=== PATIENT | male | born 1995 | race Caucasian/White ===

== ENCOUNTER → 2017-04-18 | Outpatient (REF) ==
[~2017-04-18] MED LIST: CLARITIN 1010 MG/TAB PO; FLONASEALLERGY NS; NORCO 325 MG-51 TAB PO; PRINIVIL40 MG PO
== END ==
LOC: WSOH 12:45
DX: Z02.1 Encounter for pre-employment examination (principal)

== ENCOUNTER → 2017-04-20 | Outpatient (REF) | LOC: WSOH 14:45 | DX: Z02.89 Encounter for other administrative examinations (principal) ==

== ENCOUNTER → 2017-04-20 | Outpatient (REF) | LOC: WSOH 13:34 | DX: Z23 Encounter for immunization (principal) ==

== ENCOUNTER → 2017-04-25 | Outpatient (REF) | LOC: WSPT 09:23 | DX: Z02.89 Encounter for other administrative examinations (principal) ==

== ENCOUNTER → 2017-06-01 | Outpatient (REF) | LOC: WSOH 10:46 | DX: Z02.89 Encounter for other administrative examinations (principal) ==

== ENCOUNTER → 2017-06-14 | Outpatient (REF) | LOC: WSOH 16:30 | DX: Z02.89 Encounter for other administrative examinations (principal) ==

== ENCOUNTER 2017-06-30 15:40 | Emergency (ER) | payer OTHER ==
[~2017-06-30] VITALS: Ht 177.8 cm; Wt 86.4 kg
[2017-06-30 15:45] VITALS: TEMP 97.3
[2017-06-30] MEDS ORDERED: PRINIVIL40 MG PO (15:48)
[2017-06-30] MEDS ORDERED: CLARITIN 1010 MG/TAB PO (15:48)
[2017-06-30] MEDS ORDERED: FLONASEALLERGY NS (15:49)
[2017-06-30] MEDS ORDERED: NORCO 325 MG-51 TAB PO (16:56)
[2017-06-30 17:13] VITALS: BP 136/65; PULSE 96
== END 2017-06-30 17:14 | disposition home or self-care (01) ==
LOC: COL.ER 15:40
DX: S43.102A Unspecified dislocation of left acromioclavicular joint, initial encounter (principal); I10 Essential (primary) hypertension; W19.XXXA Unspecified fall, initial encounter; Y93.72 Activity, wrestling